=== PATIENT | female | born 1995 | race Two or more races ===

== ENCOUNTER 2024-02-18 15:56 | Emergency (ER) | payer OTHER ==
[~2024-02-18] VITALS: Ht 162.6 cm; Wt 77.6 kg
[2024-02-18] MEDS ORDERED: FOLIC ACID20 MG PO (16:23)
[2024-02-18] MEDS ORDERED: GUAIFENESIN/DEXTROMETHORPHAN 10ML BLIST.PACK PO ONE (16:45)
[2024-02-18] MEDS ORDERED: AZITHROMYCIN 500 MG TABLET PO ONE (16:45)
[2024-02-18 17:32] LABS: HEMATOCRIT 35.1 % (36.0-45.00); HEMOGLOBIN 12.2 g/dL (12.0-15.00); MEAN CORPUSCULAR HEMOGLOBIN 31.3 pg (27.00-32.0); MEAN CORPUSCULAR HGB CONC 34.7 g/dl (32.0-36.0); PLATELET COUNT 234 K/uL (150-450); RED CELL DISTRIBUTION WIDTH 12.6 % (11.5-14.5)
[2024-02-18] MEDS ORDERED: ADULT TUSS100 MG/51 PO (18:18)
[2024-02-18] MEDS ORDERED: ZITHROMAX500 MG PO (18:18)
[2024-02-18] MEDS ORDERED: PEPCID20 MG PO (18:18)
[2024-02-18] MEDS ORDERED: ZYRTEC10 M3 PO (18:18)
== END 2024-02-18 18:19 | disposition home or self-care (01) ==
LOC: ER 15:58
PROVIDERS: General Practice
DX: J06.9 Acute upper respiratory infection, unspecified (principal); R05.9 Cough, unspecified; Z20.822 Contact with and (suspected) exposure to COVID-19

== ENCOUNTER 2024-02-27 15:47 | Emergency (ER) | payer OTHER ==
[~2024-02-27] VITALS: Ht 162.6 cm; Wt 78.9 kg
[~2024-02-27 15:47] MED LIST: ADULT TUSS100 MG/51 PO; FOLIC ACID20 MG PO; PEPCID20 MG PO; ZITHROMAX500 MG PO; ZYRTEC10 M3 PO
[2024-02-27] MEDS ORDERED: ACETAMINOPHEN 500 MG GEL..CAP PO ONE (16:30)
[2024-02-27 16:48] LABS: HEMATOCRIT 32.7 % (36.0-45.00); HEMOGLOBIN 11.9 g/dL (12.0-15.00); MEAN CELL VOLUME 88.4 fL (80.00-100.00); MEAN CORPUSCULAR HEMOGLOBIN 32.1 pg (27.00-32.0); MEAN CORPUSCULAR HGB CONC 36.3 g/dl (32.0-36.0); PLATELET COUNT 211 K/uL (150-450); RED CELL DISTRIBUTION WIDTH 13.7 % (11.5-14.5)
[2024-02-27 17:40] LABS: ALBUMIN 3.2 gm/dL (3.4-5.0); BILIRUBIN TOTAL 0.38 mg/dL (0.3-1.2); CALCIUM 8.9 mg/dL (8.5-10.1); CREATININE SERUM 0.54 mg/dL (0.55-1.02); GFR 133.47; GLOBULINA 3.6 G/DL (2.4-3.5); POTASSIUM 3.75 mEq/L (3.5-5.1); TOTAL PROTEIN 6.8 gm/dL (6.4-8.2)
[2024-02-27 18:22] LABS: PH,URINE 6.5 (5.0-8.0); URINE APPEARANCE Clear; URINE BILIRRUBIN Negative (NEGATIVE); URINE BLOOD Negative; URINE COLOR Yellow; URINE GLUCOSE Negative (NEGATIVE); URINE KETONE Negative (NEGATIVE); URINE LEUKOCYTE Negative; URINE NITRATE Negative; URINE PROTEIN Negative (NEGATIVE); URINE UROBILINOGEN 0.2 E.U./dl
[2024-02-27 18:23] LABS: URINE BACTERIA 487.5 uL (0.0-1933); URINE EPITHELIAL CELLS 64.9 uL (0.0-38.8); URINE WBC 12.6 uL (0.0-23.2)
[2024-02-27 19:01] LABS: URINE CAST 0.15 uL (0.0-1.40); URINE RBC 1.9 uL (0.0-20.8)
== END 2024-02-27 20:02 | disposition home or self-care (01) ==
LOC: ER 15:47
PROVIDERS: General Practice
DX: O26.892 Other specified pregnancy related conditions, second trimester (principal); R10.2 Pelvic and perineal pain; Z3A.14 14 weeks gestation of pregnancy; T14.8XXA Other injury of unspecified body region, initial encounter; V49.9XXA Car occupant (driver) (passenger) injured in unspecified traffic accident, initial encounter; Y93.89 Activity, other specified; Y92.413 State road as the place of occurrence of the external cause; Y99.9 Unspecified external cause status

== ENCOUNTER → 2024-03-03 | Emergency (ER) | payer OTHER ==
[~2024-03-03] VITALS: Ht 162.6 cm; Wt 2.3 kg
== END | disposition left against medical advice (07) ==
LOC: ER 21:28
DX: Z53.21 Procedure and treatment not carried out due to patient leaving prior to being seen by health care provider (principal)

== ENCOUNTER 2024-08-24 06:35 | Inpatient (IN) | payer OTHER ==
[~2024-08-24] VITALS: Ht 162.6 cm; Wt 93.4 kg
[2024-08-24] MEDS ORDERED: RINGERS SOLUTION,LACTATED 1,000 ML IV SCH (06:45)
[2024-08-24] MEDS ORDERED: AMPICILLIN SODIUM 2,000 MG VIAL IV ONE (07:00)
[2024-08-24 07:15] VITALS: BP 126/85
[2024-08-24 08:25] LABS: BASO % 0.1 % (0.1-1.2); EOS # 0.07 (0.04-0.54); EOS % 0.9 % (0.7-7.0); HEMATOCRIT 31.6 % (34.1-44.9); HEMOGLOBIN 11.2 g/dL (11.2-15.7); LYMPH # 1.74 (1.18-3.74); LYMPH % 22.1 % (19.3-53.1); MEAN CORPUSCULAR HEMOGLOBIN 31.9 pg (25.6-32.2); MONO % 6.4 % (4.7-12.5); NEUT # 5.49 (1.56-6.13); NEUT % 69.9 % (34.0-71.1); PLATELET COUNT 181 K/uL (163-369); RED BLOOD COUNT 3.51 M/uL (3.93-5.22); RED CELL DISTRIBUTION WIDTH 13.4 % (11.6-14.4)
[2024-08-24] MEDS ORDERED: PRENATABS FA T1 EACH PO (08:25)
[2024-08-24] MEDS ORDERED: VALTREX1000 MG PO (08:25)
[2024-08-24 08:49] LABS: PH,URINE 6.5 (5.0-8.0); URINE APPEARANCE Clear; URINE BILIRRUBIN Negative (NEGATIVE); URINE BLOOD Negative; URINE COLOR Yellow; URINE GLUCOSE Negative (NEGATIVE); URINE KETONE Negative (NEGATIVE); URINE LEUKOCYTE Trace; URINE NITRATE Negative; URINE PROTEIN Negative (NEGATIVE)
[2024-08-24 08:53] LABS: URINE BACTERIA 1265.6 uL (0.0-1933); URINE EPITHELIAL CELLS 122.3 uL (0.0-38.8); URINE RBC 7.9 uL (0.0-20.8); URINE WBC 24.8 uL (0.0-23.2)
[2024-08-24 09:09] LABS: URINE CAST 0.29 uL (0.0-1.40)
[2024-08-24 09:11] LABS: INR 0.94; PARTIAL THROMBOPLASTIN TIME 25.7 SECONDS (22.0-34.0); PROTHROMBIN TIME 10.3 SECONDS (9.0-11.5)
[2024-08-24] MEDS ORDERED: OXYTOCIN 20 UNITS/500ML RL PIGGYBAG IV ONE (10:40)
[2024-08-24] MEDS ORDERED: OXYTOCIN 20 UNITS/500ML RL PIGGYBAG IV SCH (11:30)
[2024-08-24] MEDS ORDERED: AMPICILLIN SODIUM 1,000 MG VIAL IV SCH (12:00)
[2024-08-24 12:37] VITALS: BP 119/57
[2024-08-24 15:27] VITALS: BP 116/54
[2024-08-24] MEDS ORDERED: ERYTHROMYCIN BASE OPHT 1GM EACH TUBE OP ONE ×2 (17:08→17:34)
[2024-08-24] MEDS ORDERED: OXYTOCIN 20 UNITS/1000ML RL PIGGYBAG IV ONE ×2 (17:08→17:34)
[2024-08-24] MEDS ORDERED: CHLORHEXIDINE GLUCONATE 120 ML BOTTLE TOP ONE ×2 (17:09→17:34)
[2024-08-24] MEDS ORDERED: LIDOCAINE HCL 1% 10ML VIAL ONE ×2 (17:09→17:35)
[2024-08-24] MEDS ORDERED: CHLORHEXIDINE GLUCONATE 120 ML BOTTLE TP SCH (20:45)
[2024-08-24] MEDS ORDERED: OXYTOCIN 1,000 ML IV SCH (20:45)
[2024-08-24] MEDS ORDERED: ACETAMINOPHEN 500 MG GEL..CAP PO PRN (20:45)
[2024-08-24 21:18] VITALS: BP 124/77
[2024-08-24 23:15] LABS: BASO % 0.1 % (0.1-1.2); HEMATOCRIT 32.5 % (34.1-44.9); HEMOGLOBIN 11.5 g/dL (11.2-15.7); LYMPH # 0.93 (1.18-3.74); LYMPH % 6.3 % (19.3-53.1); MEAN CORPUSCULAR HEMOGLOBIN 31.3 pg (25.6-32.2); MONO # 0.49 (0.24-0.82); MONO % 3.3 % (4.7-12.5); NEUT # 13.17 (1.56-6.13); NEUT % 89.9 % (34.0-71.1); PLATELET COUNT 200 K/uL (163-369); RED BLOOD COUNT 3.67 M/uL (3.93-5.22); RED CELL DISTRIBUTION WIDTH 13.2 % (11.6-14.4)
[2024-08-25 01:42] VITALS: BP 130/79
[2024-08-25 08:00] VITALS: BP 121/71
[2024-08-25] MEDS ORDERED: PNV,CALCIUM 72/IRON/FOLIC ACID 1 TAB TABLET PO SCH (09:00)
[2024-08-25 16:10] VITALS: BP 127/84
[2024-08-25 20:21] VITALS: BP 131/80
[2024-08-26 01:53] VITALS: BP 127/80
[2024-08-26 10:21] VITALS: BP 136/74
== END 2024-08-26 14:42 | disposition home or self-care (01) | DRG 807 ==
LOC: LDR 06:35 → OB/GYN 06:35
PROVIDERS: ADMIT Obstetrics & Gynecology; ATTEND Obstetrics & Gynecology
PROC: 10E0XZZ Delivery of Products of Conception, External Approach (ICD-10-PCS; principal; 2024-08-24)
PROC: 4A1HXCZ Monitoring of Products of Conception, Cardiac Rate, External Approach (ICD-10-PCS; 2024-08-24)
DX: O80 Encounter for full-term uncomplicated delivery (principal); Z37.0 Single live birth; Z3A.39 39 weeks gestation of pregnancy